=== PATIENT | male | born 1980 | race Caucasian/White ===

== ENCOUNTER 2016-12-03 11:04 | Emergency (ER) | payer OTHER ==
[~2016-12-03] VITALS: Ht 172.7 cm; Wt 92.0 kg
[2016-12-03 11:22] VITALS: BP 129/87
[2016-12-03] MEDS ORDERED: RABIES VACCINE /PF 2.5 UNITS IM-VACC STA (12:02)
[2016-12-03] MEDS ORDERED: RABIES IMMUNE GLOBULIN/PF 150 UNITS/ML, 2ML IM ONE (12:30)
== END 2016-12-03 13:16 | disposition home or self-care (01) ==
LOC: ED 12:08
DX: Z20.3 Contact with and (suspected) exposure to rabies (principal)
CPT/HCPCS: 99281